=== PATIENT | male | born 1975 | race Caucasian/White ===

== ENCOUNTER 2023-12-08 18:59 | Inpatient (IN) | payer BC ==
[~2023-12-08] VITALS: Ht 167.6 cm; Wt 105.7 kg
[2023-12-08 19:02] VITALS: BP 99/60; PULSE 81; RESP 16; TEMP 97.9; O2SAT 93
[2023-12-08 20:11] LABS: BASOPHILS % (AUTO) 0.5 % (0.0-2.0); EOSINOPHILS # (AUTO) 0.1 K/uL (0-0.4); EOSINOPHILS % (AUTO) 1.2 % (0.0-4.0); HEMATOCRIT 32.8 % (36-52); LYMPHOCYTES # (AUTO) 1.5 K/uL (2.0-11.5); LYMPHOCYTES % (AUTO) 15.5 % (20.5-51.1); MEAN CORPUSCULAR HEMOGLOBIN 31 pg (27-31); MEAN CORPUSCULAR HGB CONC 33 g/dL (33-37); MEAN CORPUSCULAR VOLUME 91.4 fL (80-94); MONOCYTES # (AUTO) 0.7 K/uL (0.8-1.0); MONOCYTES % (AUTO) 6.8 % (1.7-9.3); NEUTROPHILS # (AUTO) 7.6 K/uL (1.8-7.7); PLATELET COUNT (AUTO) 337 K/uL (140-450); RED BLOOD CELL COUNT(AUTO) 3.59 MIL/uL (4.20-6.10); RED CELL DISTRIBUTION WIDTH 14.1 % (11.6-13.7)
[2023-12-08 20:20] LABS: ANION GAP 19.6 (8-16); CALCIUM 10.7 mg/dL (8.5-10.1); CARBON DIOXIDE 22.5 mmol/L (21-32); CREATININE 3.1 mg/dL (0.6-1.3)
[2023-12-08 20:23] LABS: INR 0.91 (0.8-1.2); PARTIAL THROMBOPLASTIN TIME 21.9 secs (22-35.6); PROTHROMBIN TIME 9.6 secs (10.8-13.4)
[2023-12-08 20:24] LABS: POTASSIUM 6.1 mmol/L (3.5-5.1)
[2023-12-08 20:29] LABS: ALANINE AMINOTRANSFERASE 50 U/L (12-78); ALBUMIN 4.4 g/dL (3.4-5.0); ALKALINE PHOSPHATASE 116 U/L (50-136); ASPARTATE AMINOTRANSFERASE 41 U/L (15-37); BILIRUBIN,DIRECT 0.1 mg/dL (0.0-0.3); TOTAL BILIRUBIN 0.3 mg/dL (0.0-1.0); TOTAL PROTEIN, SERUM 9.1 g/dL (6.4-8.2)
[2023-12-08 20:34] LABS: BILIRUBIN,URINE NEGATIVE (NEGATIVE); BLOOD, URINE TRACE-I (NEGATIVE); COLOR,URINE YELLOW (YELLOW); LEUKOCYTE ESTERASE ,URINE NEGATIVE (NEGATIVE); NITRITE, URINE NEGATIVE (NEGATIVE); PROTEIN,URINE 3+ (NEGATIVE); UGLUCOSE 3+ (NEGATIVE); UROBILINOGEN,URINE 0.2 EU/dL (0.2 - 1)
[2023-12-08 20:36] LABS: APPEARANCE,URINE SLIGHTLY HAZY (CLEAR)
[2023-12-08 20:38] LABS: BACTERIA,URINE 1+ /HPF (None Seen); MUCUS,URINE None Seen /LPF (None Seen); RBC,URINE 0-5 /HPF (0-5); SQUAMOUS EPITHELIAL CELL,UR 0-3 (FEW) /LPF (0-3 (FEW)); WBC,URINE 0-5 /HPF (0-5)
[2023-12-08 20:40] LABS: AMPHETAMINE, URINE NEGATIVE ng/ml (NEG <=1000); BARBITURATE, URINE NEGATIVE ng/ml (NEG <=200); BENZODIAZEPINE, URINE NEGATIVE ng/mL (NEG <=200); CANNABINOID, URINE NEGATIVE ng/mL (NEG <=50); COCAINE, URINE NEGATIVE ng/mL (NEG <=300); OPIATE, URINE NEGATIVE ng/mL (NEG <=2000); PHENCYCLIDINE SCREEN,URINE NEGATIVE ng/mL (NEG <=25)
[2023-12-08] MEDS: NACL 0.9% 1,000 ML IV ONE (20:50)
[2023-12-08] MEDS ORDERED: KETOROLAC 30 MG/ML VIAL ONE (20:59)
[2023-12-08] MEDS ORDERED: ONDANSETRON 4 MG/2 ML VIAL ONE (20:59)
[2023-12-08] MEDS: ONDANSETRON 4 MG/2 ML VIAL IVP ONE (21:00)
[2023-12-08] MEDS: KETOROLAC 30 MG/ML VIAL IVP ONE (21:02)
[2023-12-08] MEDS: SODIUM ZIRCONIUM CYCLOSILICATE 10 GM POWD.PACK PO ONE (21:56)
[2023-12-08] MEDS: DEXTROSE 50% 50 ML SYR IVP ONE (22:26)
[2023-12-08] MEDS: INSULIN REGULAR, HUMAN 100 UNIT/ML VIAL IVP ONE (22:32)
[2023-12-08] MEDS: MORPHINE SULFATE 4 MG/ML SYR IVP ONE (22:42)
[2023-12-09] MEDS ORDERED: ZOLPIDEM 5 MG TAB PO PRN (00:20)
[2023-12-09] MEDS ORDERED: LORazepam 1 MG TAB PO PRN (00:20)
[2023-12-09] MEDS ORDERED: SODIUM ZIRCONIUM CYCLOSILICATE 10 GM POWD.PACK PO ONE (00:25)
[2023-12-09 01:10] VITALS: BP 144/68; PULSE 71; RESP 16; TEMP 97.7; O2SAT 100
[2023-12-09 03:00] VITALS: PULSE 71; O2SAT 100
[2023-12-09 04:00] VITALS: BP 103/52; PULSE 69; RESP 14; TEMP 97.5; O2SAT 96
[2023-12-09 08:00] VITALS: BP 99/49; PULSE 74; RESP 18; TEMP 97; O2SAT 96
[2023-12-09] MEDS: DOCUSATE SODIUM 100 MG GELCAP PO SCH (08:41)
[2023-12-09 09:38] LABS: ALBUMIN 3.4 g/dL (3.4-5.0); ANION GAP 16.7 (8-16); CALCIUM 9.2 mg/dL (8.5-10.1); CARBON DIOXIDE 21.2 mmol/L (21-32); CREATININE 2.9 mg/dL (0.6-1.3); POTASSIUM 4.9 mmol/L (3.5-5.1); TOTAL BILIRUBIN 0.3 mg/dL (0.0-1.0); TOTAL PROTEIN, SERUM 7.5 g/dL (6.4-8.2)
[2023-12-09] MEDS: NACL 0.9% 1,000 ML IV SCH (12:15)
[2023-12-09] MEDS ORDERED: DEXTROSE 50% 50 ML SYR IVP PRN (14:35)
[2023-12-09 16:00] VITALS: BP 103/52; PULSE 78; RESP 18; TEMP 97.9; O2SAT 97
[2023-12-09] MEDS: BLOOD GLUCOSE MONITORING 1 DEV DEV FS SCH (16:30)
[2023-12-09] MEDS ORDERED: hydrALAZINE 10 MG TAB PO PRN (17:05)
[2023-12-09] MEDS: hydrALAZINE 10 MG TAB PO PRN (17:44)
[2023-12-09] MEDS: INSULIN LISPRO SLIDING SCALE 100 UNITS/ML VIAL SUBQ PRN (17:53)
[2023-12-09] MEDS: INSULIN LANTUS 100 UNITS/ML 10 ML VIAL SUBQ SCH (18:11)
[2023-12-09] MEDS ORDERED: INSULIN LANTUS 100 UNITS/ML 10 ML VIAL SUBQ SCH (19:00)
[2023-12-09 20:00] VITALS: BP 151/75; PULSE 74; PULSE 88; RESP 18; TEMP 97.6; O2SAT 96
[2023-12-09] MEDS: INSULIN LISPRO 100 UNITS/ML VIAL SUBQ ONE (21:17)
[2023-12-10 04:00] VITALS: BP 146/84; PULSE 82; RESP 18; TEMP 98.1; O2SAT 99
[2023-12-10 07:05] LABS: ALBUMIN 3.1 g/dL (3.4-5.0); CALCIUM 8.8 mg/dL (8.5-10.1); CARBON DIOXIDE 18.4 mmol/L (21-32); POTASSIUM 5.4 mmol/L (3.5-5.1); TOTAL BILIRUBIN 0.2 mg/dL (0.0-1.0); TOTAL PROTEIN, SERUM 7.1 g/dL (6.4-8.2)
[2023-12-10 08:00] VITALS: BP 124/55; PULSE 75; PULSE 80; RESP 18; TEMP 97.3; O2SAT 92; O2SAT 96
[2023-12-10 08:19] LABS: BASOPHILS % (AUTO) 0.7 % (0.0-2.0); EOSINOPHILS # (AUTO) 0.7 K/uL (0-0.4); EOSINOPHILS % (AUTO) 11.9 % (0.0-4.0); HEMATOCRIT 27.8 % (36-52); HEMOGLOBIN 9.4 g/dL (12.0-18.0); LYMPHOCYTES # (AUTO) 2.4 K/uL (2.0-11.5); LYMPHOCYTES % (AUTO) 39.1 % (20.5-51.1); MEAN CORPUSCULAR HEMOGLOBIN 31 pg (27-31); MEAN CORPUSCULAR HGB CONC 34 g/dL (33-37); MEAN CORPUSCULAR VOLUME 92.3 fL (80-94); MONOCYTES # (AUTO) 0.5 K/uL (0.8-1.0); MONOCYTES % (AUTO) 8.6 % (1.7-9.3); NEUTROPHILS # (AUTO) 2.4 K/uL (1.8-7.7); NEUTROPHILS % (AUTO) 39.7 % (42.2-75.2); PLATELET COUNT (AUTO) 269 K/uL (140-450); RED BLOOD CELL COUNT(AUTO) 3.01 MIL/uL (4.20-6.10); RED CELL DISTRIBUTION WIDTH 13.8 % (11.6-13.7)
[2023-12-10] MEDS: amLODIPine 5 MG TAB PO SCH (08:55)
[2023-12-10] MEDS: ATORVASTATIN 20 MG TAB PO SCH (08:55)
[2023-12-10 12:00] VITALS: BP 124/55; PULSE 75; RESP 18; TEMP 97.3; O2SAT 96
[2023-12-10] MEDS ORDERED: ACETAMINOPHEN 325 MG TAB PO PRN (15:20)
[2023-12-10] MEDS: SODIUM ZIRCONIUM CYCLOSILICATE 10 GM POWD.PACK PO SCH (15:32)
[2023-12-10] MEDS ORDERED: LANTUS SC (15:37)
[2023-12-10 15:42] VITALS: BP 124/55; PULSE 75; RESP 18; TEMP 97.3
[2023-12-10 16:00] VITALS: BP 135/75; PULSE 78; RESP 18; TEMP 98.2; O2SAT 98
[2023-12-10] MEDS ORDERED: INSULIN LANTUS 100 UNITS/ML 10 ML VIAL SUBQ SCH ×2 (21:00)
== END 2023-12-10 18:00 | disposition home or self-care (01) | DRG 422 ==
LOC: MED 18:59 → MTU 12-09 01:00 → MMU 12-09 13:52
PROVIDERS: ADMIT Student in an Organized Health Care Education/Training Program; ATTEND Student in an Organized Health Care Education/Training Program
DX: E87.5 Hyperkalemia (principal); E86.0 Dehydration; N17.0 Acute kidney failure with tubular necrosis; I12.9 Hypertensive chronic kidney disease with stage 1 through stage 4 chronic kidney disease, or unspecified chronic kidney disease; N18.9 Chronic kidney disease, unspecified; E11.40 Type 2 diabetes mellitus with diabetic neuropathy, unspecified; E11.22 Type 2 diabetes mellitus with diabetic chronic kidney disease; E78.5 Hyperlipidemia, unspecified; T50.995A Adverse effect of other drugs, medicaments and biological substances, initial encounter; Z83.3 Family history of diabetes mellitus; Z79.4 Long term (current) use of insulin; Y92.89 Other specified places as the place of occurrence of the external cause
CPT/HCPCS: 36415; 71045; 76770; 80048; 80053; 80076; 80305; 81001; 82948; 83880; 84484; 85025; 85610; 85730; 87081; 87086; 93005; J1815; J1885; J2270; J2405; Q0092